=== PATIENT | female | born 1975 | race Caucasian/White ===

== ENCOUNTER 2017-06-26 06:57 | Observation (INO) | payer OTHER ==
--- NOTE | 2017-06-25 11:35 | Diagnostic Imaging Report ---
PROCEDURE: Frontal and lateral views of the chest. COMPARISON: None. INDICATIONS: PRE-OP NECK FINDINGS: Lines/tubes: None. Lungs: The lungs are well inflated and clear. There is no evidence of pneumonia or pulmonary edema. Pleura: There is no pleural effusion or pneumothorax. Heart and mediastinum: The heart and the mediastinum are normal. Bones: No acute bony abnormality. Right upper quadrant cholecystectomy clips. IMPRESSION: No acute cardiopulmonary disease. Dictated by: Mike Bailey M.D. on 06/25/2017 at 11:43 Electronically approved by: Mike Bailey M.D. on 06/25/2017 at 11:43
[2017-06-25 11:53] LABS: BASOPHILS % 0.3 % (0.0-1.0); EOSINOPHILS # (AUTO) 0.1 (0.0-0.4); EOSINOPHILS % 0.7 % (0.0-6.0); HEMATOCRIT 42.3 % (34.2-44.1); HEMOGLOBIN 14.1 g/dL (12.0-16.0); LYMPHOCYTES # (AUTO) 2.4 (1.0-3.2); LYMPHOCYTES % 24.6 % (18.0-39.1); MEAN CORPUSCULAR HEMOGLOBIN 28.2 pg (28-32); MEAN CORPUSCULAR HGB CONC 33.3 g/dL (31-35); MEAN CORPUSCULAR VOLUME 84.6 fL (81-99); MONOCYTES # (AUTO) 0.4 (0.2-0.8); MONOCYTES % 4.4 % (4.4-11.3); NEUTROPHILS # (AUTO) 6.9 (2.1-6.9); NEUTROPHILS % 69.5 % (38.7-80.0); PLATELET COUNT 268 x10e3/uL (140-360); RED CELL DISTRIBUTION WIDTH 12.8 % (11.7-14.4)
[2017-06-25 12:22] LABS: INR 0.89; PROTHROMBIN TIME 12.5 seconds (11.9-14.5)
[2017-06-25 12:23] LABS: PARTIAL THROMBOPLASTIN TIME 29.1 seconds (23.8-35.5)
[2017-06-25 12:27] LABS: ANION GAP 11.9 mmol/L (8-16); BLOOD UREA NITROGEN 8 mg/dL (7-26); BUN/CREATININE RATIO 11 (6-25); CALCIUM 9.1 mg/dL (8.4-10.2); CARBON DIOXIDE 25 mmol/L (22-29); CHLORIDE 104 mmol/L (98-107); CREATININE, SERUM 0.72 mg/dL (0.57-1.11); EST GLOMERULAR FILTRATION RATE > 60 ML/MIN (60-); GLUCOSE 203 mg/dL (74-118); POTASSIUM 3.9 mmol/L (3.5-5.1); SODIUM 137 mmol/L (136-145)
[~2017-06-26] VITALS: Ht 170.2 cm; Wt 107.0 kg
[~2017-06-26 06:57] MED LIST: JARDIANCE PO; LISINOPRIL10 MG PO; PROZAC20 MG PO
[2017-06-26] MEDS ORDERED: CEFAZOLIN SOD 2 GM/D5W 50ML 50 ML IV ONE (07:01)
[2017-06-26] MEDS ORDERED: THROMBIN FOR SOLN 5,000 UNIT VIAL ONE (09:06)
[2017-06-26] MEDS ORDERED: GELATIN SPONGE SZ 100 ONE (09:06)
[2017-06-26] MEDS ORDERED: BACITRACIN 50,000 UNIT VIAL ONE (09:06)
[2017-06-26] MEDS ORDERED: BUPIVACAINE HCL 0.5% INJ 30 ML VIAL INJ ONE (09:06)
[2017-06-26] MEDS ORDERED: LACTATED RINGER'S 1,000 ML IV SCH (10:55)
[2017-06-26] MEDS ORDERED: CEPACOL SORE THROAT LOZENGES PO PRN (11:00)
[2017-06-26] MEDS ORDERED: MORPHINE SULFATE 5 MG/ML VIAL IM PRN (11:00)
[2017-06-26] MEDS ORDERED: ZOLPIDEM TARTRATE 5 MG TAB PO PRN (11:00)
[2017-06-26] MEDS ORDERED: ONDANSETRON HCL INJ 2 MG/ML VIAL IV PRN (11:00)
[2017-06-26] MEDS ORDERED: MAGNESIUM/ALUMINUM/SIMETHICONE 30 ML UDC PO PRN (11:00)
[2017-06-26] MEDS ORDERED: ACETAMINOPHEN 325 MG TAB PO PRN (11:00)
[2017-06-26] MEDS ORDERED: PROMETHAZINE HCL (IM) 25 MG/ML VIAL IM PRN (11:00)
[2017-06-26] MEDS ORDERED: FENTANYL CITRATE/PF 100MCG/2 ML INJ ONE ×2 (11:18→19:11)
[2017-06-26] MEDS: CARISOPRODOL 350 MG TAB PO PRN (12:50)
[2017-06-26 13:02] VITALS: BP 133/76
[2017-06-26 13:05] VITALS: BP 133/76
[2017-06-26] MEDS ORDERED: CEFAZOLIN SOD 1 GM VIAL IV SCH (14:00)
[2017-06-26] MEDS ORDERED: CEFAZOLIN SOD 1 GM/NS 50ML 50 ML IV SCH (14:00)
[2017-06-26 14:50] VITALS: BP 133/76
--- NOTE | 2017-06-26 15:30 | Operative Report ---
DATE OF PROCEDURE: June 26, 2017 PREOPERATIVE DIAGNOSIS: C5-6 and C6-7 spondylosis and disk herniation with radiculopathy, M50.120. POSTOPERATIVE DIAGNOSIS: C5-6 and C6-7 spondylosis and disk herniation with radiculopathy, M50.120. PROCEDURES 1. C5-6 anterior cervical diskectomy and microsurgical osteophyte resection and allograft fusion, 59477. 2. C6-7 anterior cervical diskectomy and microsurgical osteophyte resection and allograft fusion, 21136. 3. Preparation of iliac crest allograft, 62906. 4. C5-6 and C6-7 anterior cervical plating, 81698. ANESTHESIA: General. INDICATIONS: The patient is a woman who presents with C5-6 and C6-7 disk herniation and spondylosis. She was taken to the operating room for a 2-level anterior cervical decompression and fusion. DESCRIPTION OF PROCEDURE: After the induction of general anesthesia, the patient was placed on the operating table in the supine position. The right side of the neck was prepped and draped in a sterile fashion. The fluoroscopic C-arm was positioned in cross-table lateral orientation. A transverse incision was created on the right side of the neck superimposed on the C6 vertebral body, as determined by fluoroscopy. The platysma was divided in line with the incision. A subplatysmal dissection was carried out. An avascular plane of dissection was developed medial to the sternocleidomastoid muscle and was followed medial to the carotid sheath to the anterior border of the cervical spine. The deep cervical fascia was opened. The esophagus was retracted to the left. The attachments of the longus coli muscles to the anterolateral aspects of the vertebral bodies of C5, C6, and C7 were divided. The anterior longitudinal ligament was resected. Fleming posts were inserted into C5 and C7. The Fleming distractor was used to distract both disk spaces simultaneously. The anterior annuli of the disks were incised with a #11 blade. The contents of the disks were thoroughly evacuated with angled curets and pituitary rongeurs. The posterior osteophytes were meticulously drilled with a 2-mm cutting bur and a high-speed drill until they were completely removed. The posterior annulus of the disk, herniated disk material, and the posterior longitudinal ligament were resected layer by layer until the dura was fully exposed and decompressed. The medial aspects of the uncinate processes were resected bilaterally to further expose and decompress the origins of the corresponding nerve roots. After a satisfactory decompression had been achieved, the endplates were prepared for fusion. Two pieces of tricortical iliac crest allograft was cut to the size and shapes of the disk spaces and were inserted into the disk spaces under distraction and fluoroscopic guidance. The distraction was released, and the distraction posts were removed. The [employer] CSLP variable-type anterior cervical plate measuring 34 mm was selected and affixed to the vertebral bodies of C5, C6 and C7 with 3 pairs of 14-mm screws. All screw holes were drilled and tapped under lateral fluoroscopic guidance. All screws were locked with the appropriate locking screws. An excellent construct was obtained. The wound was copiously irrigated with Bacitracin solution. Meticulous hemostasis was secured. The retractor was removed. The platysma was closed with 3-0 Vicryl sutures. The skin was closed with 4-0 Monocryl sutures in a subcuticular fashion. Steri-Strips and a dressing were applied. The patient was awakened, extubated, and taken to the postanesthesia care unit in stable condition. No intraoperative complications were encountered. Estimated blood loss was 30 mL. Job#: [id number]
[2017-06-26 15:49] VITALS: BP 126/71
[2017-06-26] MEDS: OXYCODONE/ACETAMINOPHEN 5-325 1 EACH TABLET PO PRN (16:01)
[2017-06-26] MEDS: CEFAZOLIN SOD 1 GM VIAL IV SCH (17:34)
[2017-06-26] MEDS ORDERED: KETOROLAC TROMETHAMINE 30 MG/ML VIAL ONE (17:52)
[2017-06-26] MEDS ORDERED: ROCURONIUM BROMIDE 10 MG/ML 5ML VIAL ONE (17:52)
[2017-06-26] MEDS ORDERED: ONDANSETRON HCL INJ 2 MG/ML VIAL ONE (17:52)
[2017-06-26] MEDS ORDERED: ACETAMINOPHEN 1000 MG/100 ML IV ONE (17:52)
[2017-06-26] MEDS ORDERED: PROPOFOL IV EMULSION 10 MG/ML 20 ML VIAL ONE (17:52)
[2017-06-26] MEDS ORDERED: SEVOFLURANE INHAL SOLN 250 ML PEN BTL ONE (17:52)
[2017-06-26] MEDS ORDERED: NEOSTIGMINE 5 MG/5ML SYR ONE (17:52)
[2017-06-26] MEDS ORDERED: GLYCOPYRROLATE INJ 1MG/ 5 ML SYR ONE (17:52)
[2017-06-26] MEDS ORDERED: DEXAMETHASONE SOD PHOS INJ 4 MG/ML VIAL ONE (17:52)
[2017-06-26] MEDS ORDERED: LIDOCAINE HCL 2% LOCAL INJ 5 ML SDV VIAL INJ ONE (17:52)
[2017-06-26] MEDS ORDERED: MIDAZOLAM HCL 2 MG/2 ML VIAL ONE (19:11)
[2017-06-26] MEDS: HYDROMORPHONE 2MG/ML INJ IV PRN (19:18)
[2017-06-26 20:00] VITALS: BP 149/65
[2017-06-26 21:43] VITALS: BP 147/63
[2017-06-27] MEDS: CEFAZOLIN SOD 1 GM VIAL IV SCH (00:18)
[2017-06-27] MEDS: HYDROMORPHONE 2MG/ML INJ IV PRN ×2 (00:48→04:58)
[2017-06-27 01:17] VITALS: BP 139/91
[2017-06-27 04:00] VITALS: BP 125/68
--- NOTE | 2017-06-27 07:14 | Diagnostic Imaging Report ---
C-SPINE 2 VIEWS AP LATERAL HISTORY: Status post fusion COMPARISON: None FINDINGS: Bones: No displaced fracture. Patient is status post anterior vertebral body fusion from C5 through C7 Osseous alignment is within normal limits. Joints: The joint spaces are well-maintained. Soft tissues: The soft tissues appear unremarkable. IMPRESSION: No acute radiographic abnormality. Signed by: Dr. Mikael Reagan M.D. on 06/27/2017 7:10 AM
[2017-06-27] MEDS ORDERED: NORCO 7.5-3251 EACH PO (08:10)
[2017-06-27 08:15] VITALS: BP 134/64
[2017-06-27] MEDS: OXYCODONE/ACETAMINOPHEN 5-325 1 EACH TABLET PO PRN (11:05)
[2017-06-27] MEDS: CARISOPRODOL 350 MG TAB PO PRN (11:05)
[2017-06-27 11:51] VITALS: BP 129/61
== END 2017-06-27 13:46 | disposition home or self-care (01) ==
LOC: OR 06:57 → IMCU 11:11
PROVIDERS: ADMIT Neurological Surgery; ATTEND Neurological Surgery
DX: M48.02 Spinal stenosis, cervical region (principal); I10 Essential (primary) hypertension; Z01.818 Encounter for other preprocedural examination; Z01.810 Encounter for preprocedural cardiovascular examination; Z01.812 Encounter for preprocedural laboratory examination; F41.9 Anxiety disorder, unspecified; E66.9 Obesity, unspecified; Z68.37 Body mass index [BMI] 37.0-37.9, adult; E11.9 Type 2 diabetes mellitus without complications; Z98.84 Bariatric surgery status; Z87.442 Personal history of urinary calculi; M50.122 Cervical disc disorder at C5-C6 level with radiculopathy; M50.123 Cervical disc disorder at C6-C7 level with radiculopathy; Z79.84 Long term (current) use of oral hypoglycemic drugs
CPT/HCPCS: 20931; 22551; 22552; 22845; 36415 ×2; 71020; 72040; 77003; 80048; 81025; 82948; 85025; 85610; 85730; 86850; 86900; 88304; 93005; C1768; G0378 ×2; J0690 ×2; J1100; J1170 ×2; J1885; J2001; J2250; J2405 ×2; 88311